=== PATIENT | male | born 1990 | race American Indian/Alaskan Native ===

== ENCOUNTER 2021-11-24 16:18 | Emergency (ER) | payer MEDICAID, SELFPAY ==
--- NOTE | 2021-11-24 16:48 | ED.GENADULT ---
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 and the pharmacy is closed over the weekend, he denies any seizure activity and he has no acute complaints he simply wants to maintain appropriate dosing of his medication Related Data Previous Rx's Medication Instructions Recorded lamotrigine 200 mg tablet 200 mg PO BID #10 tab 11/24/21 Allergies Allergy/AdvReac Type Severity Reaction Status Date / Time No Known Allergies Allergy Verified 11/24/21 17:02 [No Known Allergies*] Review of Systems Review of Systems: Here for med refill Negatives are no headache no confusion no dizziness no fainting no feeling faint no seizure no cough no vomiting no numbness weakness or tingling Yes all other systems are reviewed and are negative [facility] Past Medical History [facility] Narrative: History of seizures Source: nursing notes reviewed Social History Social History Advance Directives: No Advance Directives Information Provided: No Physical Exam Vital Signs: Vital Signs: Last Vital Signs Temp 98.7 F 11/24/21 17:00 Pulse 95 11/24/21 17:00 Resp 16 11/24/21 17:00 BP 120/59 L 11/24/21 17:00 Pulse Ox 97 11/24/21 17:00 BMI result Body Mass Index 21.4 General appearance no distress comfortable relaxed cooperative Head is normocephalic atraumatic Pupils equal round reactive light Extraocular motions intact Neck is supple Respiratory no distress Extremities full range of motion x4 Neuro gait and balance are normal, interaction both expression and comprehension are normal, motor is 5/5 x4 Course Course Course Narrative: Well-appearing asymptomatic patient with no recent seizures with normal exam is given a refill and will follow with his primary doctor He is compliant with his medication and has not missed any doses Discharge Plan Discharge Clinical Impression: Medication refill Patient Disposition: Home, Self-Care Additional Instructions: Follow with your doctor for a regular refill I wrote for 5 days worth of medication Return any time any worse condition or any concerns Prescriptions: New lamotrigine 200 mg tablet 200 mg PO BID Qty: 10 0RF Interventions: ED Discharge Assessment Last Done: 11/24/21 17:58 Discharge Date/Time: 11/24/21 17:59
[2021-11-24 17:00] VITALS: BP 120/59; PULSE 95; RESP 16; TEMP 37.1; O2SAT 97; BMI 21.4
== END 2021-11-24 17:59 | disposition home or self-care (01) ==
PROVIDERS: Emergency Provider Emergency Medicine; PCP Internal Medicine Geriatric Medicine
DX: Z76.0 Encounter for issue of repeat prescription (principal); R56.9 Unspecified convulsions
CPT/HCPCS: 99283

== ENCOUNTER 2022-02-24 15:07 | Emergency (ER) | payer MEDICAID, SELFPAY ==
[2022-02-24 15:55] VITALS: BP 113/61; PULSE 84; RESP 18; TEMP 36.6; O2SAT 97; BMI 21.4
--- NOTE | 2022-02-24 18:07 | ED_ITS ---
HPI - General Adult General Chief complaint: General Medical Stated complaint: med refill Time Seen by Provider: 02/24/22 18:02 Source: patient Mode of arrival: ambulatory Limitations: no limitations History of Present Illness HPI narrative: Patient presents to the emergency department requesting a temporary refill of his lamotrigine. He reports that he forgot to roller picker his medication yesterday wall the pharmacy was open. He cannot roller picker the prescription until Saturday. He is requesting a refill to hold him over until he is able to roller picker the prescription. He denies any recent seizure activity. He otherwise has no complaints. Related Data Previous Rx's Medication Instructions Recorded lamotrigine 200 mg tablet 200 mg PO BID #10 tab 11/24/21 lamotrigine 200 mg tablet 200 mg PO BID 3 Days #6 tab 02/24/22 Allergies Allergy/AdvReac Type Severity Reaction Status Date / Time No Known Allergies Allergy Verified 02/24/22 15:55 [No Known Allergies*] Review of Systems Review of Systems: Yes all other systems are reviewed and are negative [facility] Past Medical History Attestation statement: The following information was validated with the patient. Source: old records reviewed Social History Social History Advance Directives: No Advance Directives Information Provided: No Physical Exam ED Vital Signs: Vital Signs - 24 hr 02/24/22 15:55 Temperature 98 F Pulse Rate 84 Respiratory Rate 18 Blood Pressure 113/61 Pulse Oximetry 97 BMI result Body Mass Index 21.4 Vital signs have been reviewed as normal and appeared to be correct. Blood pressure normal.? Heart rate normal.? Respiration rate normal. Temperature normal.? Oxygen saturation normal. Appearance: Alert.?Oriented to person, place and time. No acute distress.?Normal affect. Eyes: Pupils equal, round and reactive to light.? ENT: Pharynx normal.?? Neck: Normal inspection.? Neck supple.?? CVS: Heart sounds normal. Normal heart rate and rhythm.? Pulses normal.?? Respiratory: No respiratory distress.? Lung sounds clear to auscultation bilaterally?? Abdomen: Soft and non-tender. Skin: Skin warm and dry.? Normal skin color.? Extremities: No lower extremity edema.? Neuro: Moves all extremities spontaneously. Sensation intact bilaterally. No motor deficits. Ambulates with normal steady gait. Course Course Course Narrative: Patient is a 31-year-old male with a past medical history of seizures. Presenting to emergency department for a refill on his lamotrigine as the pharmacy it was sent to is currently closed and he will not be able to roller picker the medication for another 2 days. Advised patient that I will provide a prescription for his lamotrigine, 3 day supply. Advised to follow-up with his primary care provider as needed, and may return to the emergency department with any new symptoms or concerns. He is well-appearing, without any medical complaints/concerns. Discharge Plan Discharge Clinical Impression: Medication refill Patient Disposition: Home, Self-Care Additional Instructions: A new prescription for your lamotrigine was sent to [facility] on [facility] in [place] for a 3 day supply of your medication. Please follow-up with your primary care provider for refill of your medication. You may return to the emergency department any new symptoms or concerns. Prescriptions: New lamotrigine 200 mg tablet 200 mg PO BID 3 Days Qty: 6 0RF No Action lamotrigine 200 mg tablet 200 mg PO BID Qty: 10 0RF Interventions: ED Discharge Assessment Last Done: 02/24/22 18:15 Discharge Date/Time: 02/24/22 18:16
== END 2022-02-24 18:16 | disposition home or self-care (01) ==
PROVIDERS: Emergency Provider Internal Medicine; PCP Internal Medicine Geriatric Medicine
DX: Z76.0 Encounter for issue of repeat prescription (principal); R56.9 Unspecified convulsions
CPT/HCPCS: 99282; 99283

== ENCOUNTER 2023-03-18 13:44 | Emergency (ER) | payer MEDICAID, SELFPAY ==
[2023-03-18 13:57] VITALS: BP 148/74; PULSE 101; RESP 16; TEMP 36.6; O2SAT 98; BMI 21.5
--- NOTE | 2023-03-18 13:59 | ED_ITS ---
HPI - General Adult General Chief complaint: General Medical Stated complaint: Looking for seizure meds Time Seen by Provider: 03/18/23 14:06 Source: patient Mode of arrival: ambulatory Limitations: no limitations History of Present Illness HPI narrative: 32 yold male presents to the ED for medication refill of lamictical. patient states he ran out of lamictal and has refill, but pharmacy was closed today. patient needs two 200mg doses today. Patient states no physical complaints. Related Data Previous Rx's Medication Instructions Recorded lamotrigine 200 mg tablet 200 mg PO BID #10 tabs 11/24/21 lamotrigine 200 mg tablet 200 mg PO BID 3 days #6 tabs 02/24/22 lamotrigine 200 mg tablet 200 mg PO BID #2 tabs 03/18/23 (Lamictal) Allergies Allergy/AdvReac Type Severity Reaction Status Date / Time No Known Allergies Allergy Verified 03/18/23 13:57 [No Known Allergies*] Review of Systems Review of Systems: medication refill Yes all other systems are reviewed and are negative REPLACED BY [facility] Social History Social History Advance Directives: No Advance Directives Information Provided: Yes Physical Exam ED Vital Signs: Vital Signs - 24 hr 03/18/23 13:57 Temperature 98 F Pulse Rate 101 H Respiratory Rate 16 Blood Pressure 148/74 H Pulse Oximetry 98 Oxygen Delivery Method Room Air BMI result Body Mass Index 21.5 Const General: cooperative, healthy appearing, comfortable, no acute distress, well developed, alert, awake and Physically active Orientation/consciousness: oriented to person, oriented to place, oriented to time and patient oriented x3 HENMT Head: Yes normal to inspection, Yes No palpable skull fracture present, Yes normocephalic, Yes atraumatic and No abrasion Eyes General: appearance normal, both eyes and all related structures Neck Neck: Yes normal visual inspection, Yes full ROM, Yes no lymphadenopathy, Yes no meningeal signs, Yes trachea midline, Yes supple, No anterior neck swelling and No tender Chest Chest palpation & inspection: normal inspection of the chest and normal palpation of entire chest wall Resp Effort & Inspection: normal respiratory effort and able to speak in complete sentences Auscultation: clear to auscultation bilaterally Cardio Jugular venous distension: no JVD Heart sounds: S1 normal heart sound present and S2 normal heart sound present GI Inspection: Yes normal to inspection and No abdominal wall ecchymosis Palpation (GI): Soft to palpation, not firm, nontender, no guarding and not rigid General: No CVA tenderness and Yes no CVA tenderness Back/Spine/Pelvis Back: no CVA tenderness, No CVA tenderness and No back tenderness Skin General skin exam: no rashes or lesions noted and elasticity normal Neuro General: oriented to person, oriented to place, oriented to time, patient oriented x3, gait normal, tone normal, moves all extremities, Normal light touch and pain sensation, no meningeal signs, no focal motor deficits, CN's II-XI intact bilaterally and normal sensation to monofilament Extrem General: Yes normal to inspection and Yes full ROM Psych Appearance: grossly normal, well kempt and not disheveled Course Course Course Narrative: RME: patient presents to the ED requesting lamictal 200mg BiD. patient states his pharmacy closed so he is without meds for tonight and tomorrow morning. Medical Decision Making Medical Decision Making [facility] Narrative: 32 yold male presents to the ED for medication refill of lamictal. Patient states no physical complaints. Physical exam is normal. Discharge with lamictal two doses Differential Diagnosis Differential Diagnoses: The differential diagnosis associated with the presentation includes (mediation refill) Prescription Management I considered prescription management with: Other (seizure meds) Discharge Plan Discharge Clinical Impression: Medication refill Patient Disposition: Home, Self-Care Instructions: Medicine Refill (ED) Additional Instructions: You will be discharged with two doses of lamictal. Return to the ED for any seizure, headache, nausea, vomitting, tingling, numbness, chest pain, shortness of breath, or any other concerning symptoms. Please follow up with PCP. Prescriptions: New lamotrigine [Lamictal] 200 mg tablet 200 mg PO BID Qty: 2 0RF No Action lamotrigine 200 mg tablet 200 mg PO BID Qty: 10 0RF lamotrigine 200 mg tablet 200 mg PO BID 3 Days Qty: 6 0RF Interventions: ED Discharge Assessment Last Done: 03/18/23 14:08 Discharge Date/Time: 03/18/23 15:21 Print Language: Uzbek
== END 2023-03-18 15:21 | disposition home or self-care (01) ==
PROVIDERS: Emergency Provider Emergency Medicine
DX: Z76.0 Encounter for issue of repeat prescription (principal)
CPT/HCPCS: 99282; 99283

== ENCOUNTER 2024-06-04 16:48 | Emergency (ER) | payer MEDICAID, SELFPAY ==
[2024-06-04 16:57] VITALS: BP 135/76; PULSE 92; RESP 16; TEMP 37; O2SAT 97; BMI 22.3
--- NOTE | 2024-06-04 16:57 | ED.UPPEXIN ---
HPI - Extremity Injury (Upper) General Chief Complaint: Neck Pain/Injury Stated Complaint: left side pain from neck down/WC Time Seen by Provider: 06/04/24 17:05 Source: patient Mode of arrival: ambulatory Limitations: no limitations History of Present Illness ED Provider: Nadya Morales PA-C HPI narrative: 33 yo male presents to the ER for evaluation of left sided neck pain and left shoulder pain for the last few hours when he went to work today. He reports the last several months he has been lifting heavy wood repetitively using his left arm. Pain is located on the left side of his neck and radiates to his left shoulder. It is worse with movement of his head to the right. Pain is currently 7/10. No weakness, numbness or tingling. No headaches. He is able to fully range the LUE. MD complaint: injury to: left and shoulder (& neck) Onset (ago): hour(s) Other injuries: none Handedness: right Place: work Severity: moderate Severity scale (1-10): 7 Relieving factors: immobilization and rest Exacerbating factors: movement of extremity Associated symptoms: denies other symptoms Related Data Previous Rx's ?Medication ?Instructions ?Recorded lamotrigine 200 mg tablet 200 mg PO BID #10 tabs 11/24/21 lamotrigine 200 mg tablet 200 mg PO BID 3 days #6 tabs 02/24/22 lamotrigine 200 mg tablet 200 mg PO BID #2 tabs 03/18/23 (Lamictal) cyclobenzaprine 10 mg tablet 10 mg PO TID PRN muscle spasm #14 06/04/24 tabs ibuprofen 600 mg tablet 600 mg PO Q8H PRN pain #14 tabs 06/04/24 lidocaine 5 % topical patch 1 patch topical DAILY #15 ea 06/04/24 Allergies Allergy/AdvReac Type Severity Reaction Status Date / Time No Known Allergies Allergy Verified 06/04/24 16:59 [No Known Allergies*] Review of Systems Review of Systems: Yes all other systems are reviewed and are negative [facility] Social History Social History Advance Directives: No Advance Directives Information Provided: No Physical Exam Vital Signs: Vital Signs: Last Vital Signs Temp 98.6 F 06/04/24 17:13 Pulse 92 06/04/24 17:13 Resp 16 06/04/24 17:13 BP 135/76 06/04/24 17:13 Pulse Ox 97 06/04/24 17:13 O2 Del Method Room Air 06/04/24 17:13 BMI result Body Mass Index 22.3 Appearance: Alert. Oriented X3. No acute distress. HEENT: normal inspection Neck: normal inspection, no midline tenderness of the cervical spine. soft tissue tenderness and spasm of the left side of the neck w/ spasm of the trapezius CVS: Normal heart rate and rhythm. Pulses normal. Respiratory: No respiratory distress. Skin: Skin warm and dry. Normal skin color. Normal skin turgor. No rashes. Extremities: normal inspection of the bilateral UE. FROM of the left shoulder, nontender joint without swelling. NV intact distally. Neuro: Oriented X 3. No motor deficit. No sensory deficit. Medications Administered Discontinued Medications Generic Name Dose Route Start Last Admin Trade Name Freq PRN Reason Stop Dose Admin Ketorolac Tromethamine 30 mg 06/04/24 17:01 06/04/24 17:05 Ketorolac Tromethamine 30 Mg/Ml Vial IM 06/04/24 17:02 30 mg ONCE ONE Administration Lidocaine 1 patch 06/04/24 17:01 06/04/24 17:06 Lidocaine 4 % Patch Adh..Patch TRANSDERMA 06/04/24 17:02 1 patch ONCE ONE Administration Protocol Medical Decision Making Medical Decision Making MDM Narrative: 33 yo male presenting to the ER for evaluation of left sided neck pain and spasm that radiates to the left shoulder. worse with movement of the head. FROM of the left shoulder without associated tenderness. he has muscle tenderness and spasm on exam. will treat accordingly. stable for d/c home with muscle relaxer, nsaid, lidoderm and activity modification at work Differential Diagnosis Differential Diagnoses: The differential diagnosis associated with the presentation includes cervical strain/spasm, AC joint separation, shoulder sprain, bursitis, cervical radiculopathy, rotator cuff injury, doubt dissection External Record Review External record reviewed: Outpatient record and Prior outpatient labs Tests considered The following testing was considered but not selected: considered imaging of the neck however no trauma and low suspicion for vascular injury/dissection Prescription Management I considered prescription management with: Pain Medication Critical Care Time Critical Care Time Critical Care Time: No Discharge Plan Discharge Clinical Impression: Cervical muscle strain Patient Disposition: Home, Self-Care Instructions: Cervical Sprain (ED) Additional Instructions: Your pain is most likely due to muscle strain and spasm. Limit heavy lifting Use ice several times per day for 20 minutes at a time for the next 48 hours and then change to heat. Take medications as prescribed to help with pain and discomfort. Do not drive after taking the cyclobenzaprine, it can make you tired. Follow up with your Primary Care Doctor. If you develop new or worsening symptoms call 911 or come back to the ER for further evaluation. Prescriptions: New cyclobenzaprine 10 mg tablet 10 mg PO TID PRN (Reason: muscle spasm) Qty: 14 0RF ibuprofen 600 mg tablet 600 mg PO Q8H PRN (Reason: pain) Qty: 14 0RF lidocaine 5 % adhesive patch,medicated 1 patch topical DAILY Qty: 15 0RF Rx Instructions: leave on most painful area for up to 12 hrs No Action lamotrigine 200 mg tablet 200 mg PO BID Qty: 10 0RF lamotrigine 200 mg tablet 200 mg PO BID 3 Days Qty: 6 0RF lamotrigine [Lamictal] 200 mg tablet 200 mg PO BID Qty: 2 0RF Referrals: [facility] [Physician] - Stand Alone Forms: Work/School Release Interventions: ED Discharge Assessment Last Done: 06/04/24 17:13 Discharge Date/Time: 06/04/24 17:14 Print Language: Arabic
[2024-06-04] MEDS: Ketorolac Tromethamine 30 MG/ML VIAL IM (17:05)
[2024-06-04] MEDS: Lidocaine 4 % Patch ADH..PATCH 1 PATCH TRANSDERMA (17:06)
[2024-06-04 17:13] VITALS: BP 135/76; PULSE 92; RESP 16; TEMP 37; O2SAT 97
--- OUTSIDE RECORDS SUMMARY | 2024-06-10 06:19 | XMS_ITS | Continuity of Care Document ---
Author Organization [facility] ter Address [address] [place] [id number]- Care Team Providers Care Community Outreach Manager Name Role Phone Not on Staff, PCP Primary Care Physician Unavail able Encounter [facility] Date(s): 05/22/22 - 05/22/[address] [address]- Encounter Diagnosis Back pain(Final) - 05/22/22 Discharge Disposition: A-D/C Home Attending Physician: Guzman Mcclure MD Admitting Physician: Guzman Mcclure MD Referring Physician: Not on Staff, Referring MD Allergies, Adverse Reactions, Alerts No Known Allergies Immunizations Given and Recorded Vaccine Date Status Refusal Reason tetanus/diphtheria/pertussis, acel(Tdap) 03/12/15 Given pneumococcal 23-valent vaccine 05/19/14 Given Medications acetaminophen 500 mg oral tablet 2 tablet = 1,000 mg, By Mouth, Every 8 hours, PRN for pain, # 100 tablet, 0 Refills, Acute 06/23/2213:58:00 EDT, 05/22/22 13:58:00 EDT, Tablet, [facility], Partial fill upon patient request if the prescription is for a schedule II opioi... Start Date: 05/22/22 Stop Date: 06/23/22 Status: Ordered carBAMazepine 100 mg oral tablet, extended release 400 mg, By Mouth, Every 12 hours, # 6 tablet, Refills 0, Tot. Refills 0, Maintenance, 09/28/17 15:20:40, Print Requisition Start Date: 09/28/17 Stop Date: 10/01/17 Status: Ordered carBAMazepine 400 mg oral tablet, extended release 400 mg, 1, tablet, By Mouth, 2 times a day, # 28 tablet, Refills 0, Tot. Refills 0, Maintenance, 05/14/17 15:20:44, Print Requisition Start Date: 05/14/17 Stop Date: 05/28/17 Status: Ordered carBAMazepine 400 mg oral tablet, extended release 400 mg, 1, tablet, By Mouth, 2 times a day, # 30 tablet, Refills 0, Tot. Refills 0, Maintenance, 08/29/17 16:47:54, Print Requisition Start Date: 08/29/17 Status: Ordered carBAMazepine 400 mg oral tablet, extended release 400 mg, 1, tablet, By Mouth, 2 times a day, # 10 tablet, Refills 0, Tot. Refills 0, Maintenance, 06/25/17 17:58:23, Print Requisition Start Date: 06/25/17 Stop Date: 06/30/17 Status: Ordered carbamazepine 400 mg oral tablet, extended release 1 tablet = 400 mg, By Mouth, Every 12 hours, # 60 tablet, 0 Refills, Maintenance, 05/22/14 11:54:31, XR Tablet Start Date: 05/22/14 Stop Date: 06/21/14 Status: Ordered Ibuprofen Tablet 400 mg, By Mouth, 3 times a day, PRN, Maintenance, Pain , Mild, 05/18/14 0:59:25 Start Date: 05/18/14 Status: Ordered LaMICtal ODT 200 mg oral tablet, disintegrating 1 tablet = 200 mg, By Mouth, 2 times a day, # 2 tablet, 0 Refills, Maintenance, 08/01/20 16:55:00 EDT, DIS Tablet, [facility], 164, cm, 08/01/20 16:15:00 EDT, Height, 54.2, kg, 08/01/2016:15:00 EDT, Dry Weight Start Date: 08/01/20 Stop Date: 08/02/20 Status: Ordered lamotrigine 200 mg oral tablet 1 tablet = 200 mg, By Mouth, 2 times a day, # 60 tablet, 0 Refills, Maintenance, 08/21/18 18:28:37 EDT, Tablet Start Date: 08/21/18 Stop Date: 09/20/18 Status: Ordered lamotrigine 200 mg oral tablet 1 tablet = 200 mg, By Mouth, 2 times a day, # 28 tablet, 0 Refills, Maintenance, 07/20/18 13:50:11 EDT, Tablet Start Date: 07/20/18 Stop Date: 08/03/18 Status: Ordered lamotrigine 25 mg oral tablet 25 mg, 1, tablet, By Mouth, 2 times a day, # 28 tablet, Refills 0, Tot. Refills 0, Maintenance, 05/14/17 15:21:04, Print Requisition Start Date: 05/14/17 Stop Date: 05/28/17 Status: Ordered Oncovite Multiple Vitamins oral tablet 1 tablet, By Mouth, Daily, # 30 tablet, 0 Refills, Maintenance, 05/18/14 1:00:39, Tablet Start Date: 05/18/14 Status: Ordered Vital Signs Most recent to oldest [Reference Range]: 1 2 Oxygen Saturation [94-100 %] 96 % (05/22/22 12:03 PM) 98 % (05/22/22 10:37 AM) Pulse Rate [55-90 bpm] 69 bpm (05/22/22 12:03 PM) 84 bpm (05/22/22 10:37 AM) Blood Pressure [90-138/55-84 mm Hg] 119/ 55mm Hg (05/22/22 12:03 PM) 136/64mm Hg (05/22/22 10:37 AM) Respiratory Rate [16-30 br/min] 15 br/mi n *L* (05/22/22 12:03 PM) 16 br/min (05/22/22 10:37 AM) Temperature [96.8-100.4 DegF] 98.3 DegF (05/22/22 10:37 AM) Mode of Delivery (Oxygen) Room air (05/22/22 12:03 PM) Blood pressure sites Arm, left (05/22/22 12:03 PM) Arm, left (05/22/22 10:37 AM) Social History Social History Type Response Smoking Status Current every day lenard dial entered on: 07/20/18 Sex
--- OUTSIDE RECORDS SUMMARY | 2024-06-10 06:19 | XMS_ITS | Continuity of Care Document ---
Author Organization [facility] ter Address [address] [place] [address]- Care Team Providers Care Skiver Box Toe Name Role Phone Not on Staff, PCP Primary Care Physician Unavail able Encounter [facility] Date(s): 08/01/20 - 08/01/[address] [address]- [facility] Discharge Disposition: A-D/C Home Attending Physician: Felipa Kaur MD Admitting Physician: Felipa Kaur MD Referring Physician: Not on Staff, Referring MD Allergies, Adverse Reactions, Alerts Substance Reaction Severity Status NKA Active Immunizations Given and Recorded Vaccine Date Status Refusal Reason tetanus/diphtheria/pertussis, acel(Tdap) 03/12/15 Given pneumococcal 23-valent vaccine 05/19/14 Given Medications carBAMazepine 100 mg oral tablet, extended release 400 mg, By Mouth, Every 12 hours, # 6 tablet, Refills 0, Tot. Refills 0, Maintenance, 09/28/17 15:20:40, Print Requisition Start Date: 09/28/17 Stop Date: 10/01/17 Status: Ordered carbamazepine 400 mg oral tablet, extended release 1 tablet = 400 mg, By Mouth, Every 12 hours, # 60 tablet, 0 Refills, Maintenance, 05/22/14 11:54:31, XR Tablet Start Date: 05/22/14 Stop Date: 06/21/14 Status: Ordered carBAMazepine 400 mg oral tablet, [...] Date: 06/25/17 Stop Date: 06/30/17 Status: Ordered Ibuprofen Tablet 400 mg, By Mouth, 3 times a day, PRN, Maintenance, Pain , Mild, 05/18/14 0:59:25 Start Date: 05/18/14 Status: Ordered LaMICtal ODT 200 mg oral tablet, disintegrating 1 tablet = 200 mg, By Mouth, 2 times a day, # 2 tablet, 0 Refills, Maintenance, 08/01/20 16:55:00 EDT, DIS Tablet, [facility], 164, cm, 08/01/20 16:15:00 EDT, Height, [...] recent to oldest [Reference Range]: 1 2 3 Height 164 cm (08/01/20 4:15 PM) 164 cm (08/01/20 2:16 PM) Weight 54.2 kg (08/01/20 4:15 PM) 54.2 kg (08/01/20 2:16 PM) Oxygen Saturation [94-100 %] 99 % (08/01/20 4:15 PM) 100 % (08/01/20 2:16 PM) 97 % (08/01/20 2:10 PM) Pulse Rate [55-90 bpm] 76 bpm (08/01/20 4:15 PM) 78 bpm (08/01/20 2:16 PM) 95 bpm *H* (08/01/20 2:10 PM) Body Mass Index [18.5-24.99] 20.15 (08/01/20 4:15 PM) 20.15 (08/01/20 2:16 PM) Blood Pressure [90-138/55-84 mm Hg] 127/69mm Hg (08/01/20 4:15 PM) 133/53mm Hg (08/01/20 2:16 PM) Respiratory Rate [16-30 br/min] 16 br/min (08/01/20 4:15 PM) 16 br/min (08/01/20 2:16 PM) 18 br/min (08/01/20 2:10 PM) Temperature [96.8-100.4 DegF] 98.0 DegF (08/01/20 4:15 PM) 98.2 DegF (08/01/20 2:16 PM) Mode of Delivery (Oxygen) Room air (08/01/20 4:15 PM) Room air (08/01/20 2:16 PM) Room air (08/01/20 2:10 PM) Blood pressure sites Arm, left (08/01/20 4:15 PM) Arm, right (08/01/20 2:16 PM) Temperature Route Oral (08/01/20 4:15 PM) Oral (08/01/20 2:16 PM) Dry Weight 54.2 kg (08/01/20 4:15 PM) 54.2 kg (08/01/20 2:16 PM) Weight Obtained Via Standing scale (08/01/20 2:16 PM) Dry Weight Obtained Via Standing scale (08/01/20 2:16 PM) Social History Social History Type Response Smoking Status Current every day lenard dial entered on: 07/20/18 Sex
== END 2024-06-04 17:14 | disposition home or self-care (01) ==
LOC: HO.ED 17:10
PROVIDERS: Emergency Provider Internal Medicine; PCP Internal Medicine Geriatric Medicine
DX: M54.2 Cervicalgia (principal); R51.9 Headache, unspecified
CPT/HCPCS: 96372; 99283; 99284; J1885

== ENCOUNTER 2024-07-16 14:19 | Emergency (ER) | payer MEDICAID, SELFPAY ==
--- NOTE | ~2024-07-16 | XR_ITS ---
EXAMINATION: XR HAND/WRIST, LEFT CLINICAL INFORMATION: Left wrist pain COMPARISON: None available. TECHNIQUE: PA, lateral, and oblique views of the left hand and wrist. FINDINGS: The bones and soft tissues are normal. No fracture. Alignment is anatomic. Joint spaces are maintained. No erosions or soft tissue calcifications. XR/XR hand wrist LT IMPRESSION: Normal radiographs of the hand and wrist. Electronically signed by: Tona Thayer MD 07/16/2024 04:24 PM EDT
[2024-07-16 15:19] VITALS: BP 141/65; PULSE 90; RESP 16; TEMP 36.9; O2SAT 100; BMI 22.3
--- NOTE | 2024-07-16 15:30 | ED.EXTPRO ---
HPI - Extremity Problem General Chief complaint: Extremity Injury, Upper Stated complaint: L wrist pain no injury Time Seen by Provider: 07/16/24 17:27 Source: patient and RN notes reviewed Mode of arrival: ambulatory Limitations: no limitations History of Present Illness ED Provider: Rachel Christine PA-C HPI Narrative: This is a 33-year-old male, with a history of a seizure disorder on Lamictal, who presents emergency department with complaints of left wrist pain x2 days. Patient states that 2 days ago he was pulling and object forcefully, later on that day he felt pain in his left wrist. He took ibuprofen 2 days ago which provided him with some relief. He states that he has had increased pain and feels as though something is broken in his wrist as he has pain with movement. Denies any numbness or tingling. Denies history of previous injury or trauma to his left wrist. Denies taking any medications prior to his arrival today. No fevers, chills. No other complaints or concerns at this time. MD Complaint: extremity pain and extremity swelling Location: left Quality: aching Radiation: none Relieving factors: rest Exacerbating factors: range of motion Associated symptoms: denies other symptoms Related Data Previous Rx's ?Medication ?Instructions ?Recorded lamotrigine 200 mg tablet 200 mg PO BID #10 tabs 11/24/21 lamotrigine 200 mg tablet 200 mg PO BID 3 days #6 tabs 02/24/22 lamotrigine 200 mg tablet 200 mg PO BID #2 tabs 03/18/23 (Lamictal) cyclobenzaprine 10 mg tablet 10 mg PO TID PRN muscle spasm #14 06/04/24 tabs ibuprofen 600 mg tablet 600 mg PO Q8H PRN pain #14 tabs 06/04/24 lidocaine 5 % topical patch 1 patch topical DAILY #15 ea 06/04/24 ibuprofen 600 mg tablet 600 mg PO Q6H PRN pain #30 tabs 07/16/24 Allergies Allergy/AdvReac Type Severity Reaction Status Date / Time No Known Allergies Allergy Verified 07/16/24 15:23 [No Known Allergies*] Review of Systems Review of Systems: Yes all other systems are reviewed and are negative Constitutional: Constitutional: Reports as per [facility] Past Medical History Attestation statement: The following information was validated with the patient. Social History Social History Advance Directives: No Advance Directives Information Provided: No Do you have a plan to hurt others: No Plan Physical Exam Vital Signs: Vital Signs: Last Vital Signs Temp 98.5 F 07/16/24 15:19 Pulse 90 07/16/24 15:19 Resp 16 07/16/24 15:19 BP 141/65 H 07/16/24 15:19 Pulse Ox 100 07/16/24 15:19 O2 Del Method Room Air 07/16/24 15:19 BMI result Body Mass Index 22.3 Const: General: cooperative, comfortable and no acute distress Orientation/consciousness: patient oriented x3 Limitations: no limitations HEENT: Head: Yes normal to inspection, Yes normocephalic and Yes atraumatic Ears: hearing grossly normal bilaterally General nose exam: Normal external nose present Face and sinus: Yes normal facial exam Mouth: Normal oral and palatal mucosa present, oropharynx normal and moist mucous membranes Throat: Yes posterior oropharynx normal Eyes: General: appearance normal, both eyes and all related structures Eyelids: Yes eyelids normal Conjunctivae: conjunctivae normal Sclerae: sclerae normal Pupils: Equal, round and reactive pupils present EOM: EOMs intact bilaterally Neck: Neck: Yes normal visual inspection, Yes full ROM and Yes no lymphadenopathy Lymphatic: no lymphadenopathy noted Chest: Chest palpation & inspection: normal inspection of the chest Resp: Effort & Inspection: normal respiratory effort and able to speak in complete sentences Cardio: Rate: regular rate Rhythm: regular rhythm GI: Inspection: Yes normal to inspection Skin: General skin exam: no rashes or lesions noted Trauma: no lacerations or abrasions Wounds: no wounds Neuro: General: patient oriented x3 and moves all extremities Cranial nerves: Yes Equal, round and reactive pupils present Extrem: Other: Left wrist volar aspect, overlying the distal ulna, there is faint erythema and edema, with mild tenderness palpation, no fluctuance, no warmth. Pain with flexion and extension and ulnar and radial deviation. Strong radial pulse. General: Yes normal to inspection Right upper extremity: normal to inspection Left upper extremity: normal to inspection Right lower extremity: normal to inspection Left lower extremity: normal to inspection Course Course Course Narrative: RME: Done by CAMILA Roberts. 33-year-old male presents to ED for left wrist pain for 2 days without any trauma. Pain on range of motion of left wrist. On exam negative for any swelling, bluish black discoloration, crepitus, obvious deformity of wrist or right upper extremities. Vascular neuro motor exam intact. Motor exam intact wrist but with pain. xray [email or web address] Medical Decision Making Medical Decision Making [facility] Narrative: This is a 33-year-old male who presents emergency department with complaints of left wrist pain for the last 2 days. On arrival, vital signs within normal limits. He is speaking full sentences under no acute distress. He reports a remote history of pulling and object however did not have pain initially at that time. He states that later on that day he developed pain in his left wrist. He has faint erythema and edema noted to the ulnar, volar aspect. Symptoms likely contributed to a wrist sprain. Does not appear to be cellulitic in nature. He is not diabetic. Will treat with splint, given orthopedic follow-up, given strict return precautions. He understands and agrees with plan. Patient stable for discharge Differential Diagnosis Differential Diagnoses: The differential diagnosis associated with the presentation includes Sprain, strain, contusion, fracture, dislocation Admission/Observation Consideration of admission/observation: Escalation of care including admission/observation considered Radiology Impression Discussion of test interpretation with radiology: I have reviewed the radiologist's reading. Radiologist Impression: EXAMINATION: XR HAND/WRIST, LEFT CLINICAL INFORMATION: Left wrist pain COMPARISON: None available. TECHNIQUE: PA, lateral, and oblique views of the left hand and wrist. FINDINGS: The bones and soft tissues are normal. No fracture. Alignment is anatomic. Joint spaces are maintained. No erosions or soft tissue calcifications. XR/XR hand wrist LT IMPRESSION: Normal radiographs of the hand and wrist. Electronically signed by: Tona Thayer MD 07/16/2024 04:24 PM EDT Dictated By: Tona Thayer MD Discharge Plan Discharge Clinical Impression: Left wrist sprain Patient Disposition: Home, Self-Care Instructions: Wrist Sprain (ED) Additional Instructions: You were seen in the emergency department due to left wrist pain. Your x-rays do not show any broken bones. Please rest, ice, and use splint as needed for support. Take ibuprofen every 6 hours for the next 2-3 days. Take with food as this can cause an upset stomach. Please follow-up with the orthopedic team if your symptoms persist after 1 week. If any new or worsening symptoms occur including but not limited to worsening pain, worsening redness, swelling, inability to move your wrist, please return for re-evaluation. Prescriptions: New ibuprofen 600 mg tablet 600 mg PO Q6H PRN (Reason: pain) Qty: 30 0RF No Action lamotrigine 200 mg tablet 200 mg PO BID Qty: 10 0RF lamotrigine 200 mg tablet 200 mg PO BID 3 Days Qty: 6 0RF cyclobenzaprine 10 mg tablet 10 mg PO TID PRN (Reason: muscle spasm) Qty: 14 0RF ibuprofen 600 mg tablet 600 mg PO Q8H PRN (Reason: pain) Qty: 14 0RF lidocaine 5 % adhesive patch,medicated 1 patch topical DAILY Qty: 15 0RF Rx Instructions: leave on most painful area for up to 12 hrs lamotrigine [Lamictal] 200 mg tablet 200 mg PO BID Qty: 2 0RF Referrals: [facility] [Provider Group] Discharge Date/Time: 07/16/24 18:30 Print Language: Maltese
== END 2024-07-16 18:30 | disposition home or self-care (01) ==
PROVIDERS: Emergency Provider Internal Medicine; PCP Internal Medicine Geriatric Medicine
DX: S63.502A Unspecified sprain of left wrist, initial encounter (principal); M25.532 Pain in left wrist; M79.642 Pain in left hand; X50.9XXA Other and unspecified overexertion or strenuous movements or postures, initial encounter; Y93.89 Activity, other specified; Y92.89 Other specified places as the place of occurrence of the external cause; Y99.8 Other external cause status
CPT/HCPCS: 73110; 73130; 99283

== ENCOUNTER 2024-08-04 11:52 | Outpatient (AMB) | payer MEDICAID, SELFPAY ==
--- NOTE | 2024-08-04 11:53 | MHC.OFFVIS ---
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 Patient was seen at [facility] ED on 07/16/24 with complaints of left wrist pain. Today he states that he does not recall an injury, his pain presented with ROM a couple of days prior to his ER visit. He presented to [facility] ER where x-rays were taken and placed in a velcro wrist brace. Currently his pain has improved, stating no pain or discomfort. He has numbness in his hand when sleeping. 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 The patient reports that at that time, he fell onto his left hand and wrist, and began to experience significant discomfort in the volar and ulnar aspect of the left wrist. Today, the patient reports that his symptoms have completely resolved, and that he is experiencing no pain or discomfort at this time.. Patient reports that his only complaint is that he experiences very occasional numbness and tingling in his hand when he sleeps wrong on it, that quickly resolves when he wakes up. Patient reports that he has no daytime numbness or tingling, or numbness and tingling when he sleeps in a normal position. No other acute complaints or concerns at this time. [facility] Social History (Updated 08/04/24 @ 11:56 by LAWRENCE Dooley) Patient Tobacco Use Status: Current everyday Tobacco user Current occupational status: unemployed Current occupation: right hand dominant Physical Exam Vital Signs: BMI result Body Mass Index 22.3 Extrem Other: Patient is alert, oriented, and in no acute distress. Neuro: Normal sensation of the tips of all digits of the left hand at this time Vascular: Cap refill brisk Pain: No tenderness to palpation of the left radial styloid, ulnar styloid, anatomical snuffbox, DRUJ, or elsewhere in the left hand and wrist Range of motion painless ROM: Patient is able to make a closed fist and extend all digits of the left hand fully and without difficulty Skin: No lacerations or abrasions. General: No ecchymosis, erythema, or evidence of infection. Psych: Appears grossly normal Affect normal Attitude cooperative Results Reviewed Results Reviewed: X-rays obtained in the ED on date of injury and independently reviewed by me, Abdifatah Calderón PA-C, demonstrate no fracture or acute bony abnormality. Assessment & Plan Assessment & Plan (1) Left wrist sprain: Code(s): S63.502A - Unspecified sprain of left wrist, initial encounter Category: Medical Qualifiers: Encounter type: initial encounter Qualified Code(s): S63.502A - Unspecified sprain of left wrist, initial encounter Plan 1. Left wrist sprain Symptoms resolved since evaluation in the ED At this time, patient requires no acute orthopedic intervention, as his symptoms have completely resolved Patient is advised that if he notices his numbness and tingling increasing in frequency or occurring in situations other than sleeping in an odd position, he should call for re-evaluation and potential EMG and nerve conduction study Patient was amenable to this plan Patient will follow-up as needed with any acute concerns Coding Level of Care Code New Pt Level 3 (04426) Diagnoses Left wrist sprain S63.502A Encounter type: initial encounter
[2024-08-04 11:58] VITALS: BMI 22.3
== END 2024-08-04 12:08 | disposition home or self-care (01) ==
PROVIDERS: PCP Internal Medicine Geriatric Medicine
DX: S63.502A Unspecified sprain of left wrist, initial encounter (principal)
CPT/HCPCS: 99202

== ENCOUNTER → 2024-08-04 11:52 | Outpatient (BNVA) | payer MEDICAID, SELFPAY | PROVIDERS: PCP Internal Medicine Geriatric Medicine | DX: S63.502A Unspecified sprain of left wrist, initial encounter (principal); W19.XXXA Unspecified fall, initial encounter; Y93.9 Activity, unspecified; Y92.9 Unspecified place or not applicable; Y99.9 Unspecified external cause status | CPT/HCPCS: 99212 ==

== ENCOUNTER 2024-10-25 16:55 | Emergency (ER) | payer MEDICAID, SELFPAY ==
--- NOTE | ~2024-10-25 | XR_ITS ---
CLINICAL HISTORY: chest pain 1 view chest x-ray Comparison: None Findings: Lungs are well inflated. Cardiac silhouette is within normal limits. Small left pleural effusion. Bilateral perihilar bronchial wall thickening. No dense area of consolidation. Impression: Small left pleural effusion with perihilar edema and/or bronchitis. This document has been electronically signed by: Ryan Álvarez MD on 10/25/2024 18:53:44
[2024-10-25 17:07] VITALS: BP 153/85; PULSE 96; O2SAT 98
--- NOTE | 2024-10-25 17:07 | ECG_ITS ---
Test Reason : CHEST PAIN Blood Pressure : / mmHG Vent. Rate : 092 BPM Atrial Rate : 092 BPM P-R Int : 138 ms QRS Dur : 086 ms QT Int : 320 ms P-R-T Axes : 069 036 044 degrees QTc Int : 395 ms Normal sinus rhythm Early repolarization Normal ECG When compared with ECG of 05-JAN-2015 15:15, No significant change was found Referred By: Generic ED Physician Electronically Signed By:MISTY BROWN
[2024-10-25 17:18] VITALS: BP 131/69; PULSE 92; RESP 18; TEMP 37.4; O2SAT 99
--- NOTE | 2024-10-25 17:30 | ED.CHESTPAIN ---
HPI - Chest Pain General Chief Complaint: Chest Pain Stated Complaint: chest pain since yesterday after heavy lifting Time Seen by Provider: 10/25/24 21:25 Source: patient Mode of arrival: ambulatory Limitations: no limitations History of Present Illness ED Provider: HPI narrative: Patient with no significant past medical history started noticing pain in the left side of the chest after lifting grocery yesterday reproducible pain sharp in a breath cocaine use Related Data Previous Rx's ?Medication ?Instructions ?Recorded lamotrigine 200 mg tablet 200 mg PO BID #10 tabs 11/24/21 lamotrigine 200 mg tablet 200 mg PO BID 3 days #6 tabs 02/24/22 lamotrigine 200 mg tablet 200 mg PO BID #2 tabs 03/18/23 (Lamictal) cyclobenzaprine 10 mg tablet 10 mg PO TID PRN muscle spasm #14 06/04/24 tabs ibuprofen 600 mg tablet 600 mg PO Q8H PRN pain #14 tabs 06/04/24 lidocaine 5 % topical patch 1 patch topical DAILY #15 ea 06/04/24 ibuprofen 600 mg tablet 600 mg PO Q6H PRN pain #30 tabs 07/16/24 ibuprofen 600 mg tablet 600 mg PO Q6H PRN fever or pain 10/25/24 #30 tabs Allergies Allergy/AdvReac Type Severity Reaction Status Date / Time No Known Allergies Allergy Verified 10/25/24 17:20 [No Known Allergies*] Review of Systems Review of Systems: Yes all other systems are reviewed and are negative PMFSH Social History Social History Patient Tobacco Use Status: Current everyday Tobacco user Smoked in Last 30 Days: Yes Use of substances other than those prescribed or required for medical reasons: Yes Substance Use Type: Marijuana Substance Use Frequency: Daily Advance Directives: No Advance Directives Information Provided: No Current occupational status: unemployed Current occupation: right hand dominant Physical Exam Vital Signs: Vital Signs: Last Vital Signs Temp 98.3 F 10/25/24 21:37 Pulse 88 10/25/24 21:37 Resp 16 10/25/24 21:37 BP 119/68 10/25/24 21:37 Pulse Ox 96 10/25/24 21:37 O2 Del Method Room Air 10/25/24 21:37 BMI result Body Mass Index 20.0 Appearance: Alert. Oriented X3. No acute distress. ENT: Pharynx normal. Oral Mucosa moist Neck: Normal inspection. Neck supple. CVS: Normal heart rate and rhythm. Pulses normal. Left chest wall tenderness Respiratory: No respiratory distress. Equal air entry bilateral, no wheezing/rales/rhonchi Abdomen: Soft and nontender. Bowel sounds are present, no mass palpable, no CVA tenderness Skin: Skin warm and dry. Normal skin color. Normal skin turgor. Extremities: No lower extremity edema. No calf tenderness Neuro: Oriented X 3. No motor deficit. Course Course Course Narrative: RME: 33-year-old male presents to ED for chest pain since heavy lifting and caring goes from the for floor. Presently denies any pleurisy, leg swelling, calf pain, or coughing up blood. Positive for chest wall tenderness on palpation. EKG labs chest x-ray ordered. Medical Decision Making Medical Decision Making [facility] Narrative: Patient with heart score of 0 atypical chest pain cardiac enzymes EKG negative discharge patient home on ibuprofen Differential Diagnosis Differential Diagnoses: The differential diagnosis associated with the presentation includes Lab Data [facility] Lab Attestation statement: I reviewed the patient's lab results. 10/25/24 17:40 10/25/24 17:40 Labs: Lab Results 10/25/24 Range/Units 17:40 WBC 8.3 (4.8-10.8) X10*3/uL RBC 4.67 (4.60-5.80) X10*6/uL Hgb 15.1 (14.0-18.0) g/dl Hct 42.7 (42.0-52.0) % MCV 91.4 (80.0-98.0) fL MCH 32.3 (27.0-33.0) pg MCHC 35.4 (31.0-36.0) g/dl RDW 11.3 (11.0-16.0) % Plt Count 196 (160-400) X10*3/uL MPV 10.9 (9.4-12.4) fL Immature Gran % (Auto) 0.2 (0.0-0.4) % Neut % (Auto) 72.9 (45-73) % Lymph % (Auto) 18.6 L (20-40) % Treg[place] % (Auto) 6.9 (2-11) % Eos % (Auto) 0.7 (0-4) % Baso % (Auto) 0.7 (0-2) % Lymph # (Auto) 1.5 (1.2-4.9) X10*3/uL [place] # (Auto) 0.6 (0.1-1.2) X10*3/uL Eos # (Auto) 0.1 (0.0-0.4) X10*3/uL Baso # (Auto) 0.1 (0.0-0.2) X10*3/uL Abs Immat Gran (auto) 0.02 (0.00-0.03) X10*3/uL Absolute Neuts (auto) 6.0 (2.0-8.3) x10*3/uL Absolute Nucleated RBC 0.000 (0.0-0.012) X10*3/uL Nucleated RBC % (auto) 0.0 (0.0-0.2) /100WBC PT 12.0 (10.9-12.4) SEC INR 1.0 (0.9-1.1) APTT 36.9 H (26.0-36.8) SEC Sodium 142 (135-145) mmol/L Potassium 4.2 (3.3-5.1) mmol/L Chloride 107 (96-108) mmol/L Carbon Dioxide 26 (22-29) mmol/L Anion Gap 13 (12-20) BUN 10 (9-16) mg/dL Creatinine 0.83 (0.5-1.4) mg/dL Estim Creat Clear Calc 93.6 Estimated GFR > 60 Random Glucose 114 (60-115) mg/dL Calcium 9.7 (8.4-10.2) mg/dL Total Bilirubin 0.5 (0.0-1.0) mg/dL AST 31 (5-37) U/L ALT 21 (0-40) U/L Alkaline Phosphatase 86 (39-117) U/L Troponin I High Sens < 2.7 (<3.5-35.0) ng/L B-Natriuretic Peptide < 10 (<100) pg/mL Total Protein 7.8 (6.5-8.0) g/dL Albumin 4.6 (3.5-5.0) g/dL Influenza Type A (PCR) NEGATIVE (Negative) Influenza Type B (PCR) NEGATIVE (Negative) RSV RNA Qual (PCR) NEGATIVE (Negative) SARS-CoV-2 RNA (RT-PCR) NEGATIVE (Negative) Independent Interpretation I performed an independent interpretation of an: EKG Interpretation: Normal sinus rhythm heart rate 92 beats per minute normal interval normal acute ST-T no ischemia Discharge Plan Discharge Clinical Impression: Chest wall muscle strain Patient Disposition: Home, Self-Care Instructions: Chest Wall Pain (ED) Additional Instructions: Take ibuprofen for pain Prescriptions: New ibuprofen 600 mg tablet 600 mg PO Q6H PRN (Reason: fever or pain) Qty: 30 0RF No Action lamotrigine 200 mg tablet 200 mg PO BID Qty: 10 0RF lamotrigine 200 mg tablet 200 mg PO BID 3 Days Qty: 6 0RF cyclobenzaprine 10 mg tablet 10 mg PO TID PRN (Reason: muscle spasm) Qty: 14 0RF ibuprofen 600 mg tablet 600 mg PO Q8H PRN (Reason: pain) Qty: 14 0RF lidocaine 5 % adhesive patch,medicated 1 patch topical DAILY Qty: 15 0RF Rx Instructions: leave on most painful area for up to 12 hrs lamotrigine [Lamictal] 200 mg tablet 200 mg PO BID Qty: 2 0RF ibuprofen 600 mg tablet 600 mg PO Q6H PRN (Reason: pain) Qty: 30 0RF Interventions: ED Discharge Assessment Last Done: 10/25/24 21:37 Discharge Date/Time: 10/25/24 21:58 Print Language: Lithuanian
[2024-10-25 17:45] LABS: MANUAL DIFF FLAG NO
[2024-10-25 17:46] LABS: Basophils Absolute Auto 0.1 X10*3/uL (0.0-0.2); Basophils Percent Auto 0.7 % (0-2); Eosinophils Absolute Auto 0.1 X10*3/uL (0.0-0.4); Eosinophils Percent Auto 0.7 % (0-4); Hematocrit 42.7 % (42.0-52.0); Hemoglobin 15.1 g/dl (14.0-18.0); Imm Gran Abs Auto 0.02 X10*3/uL (0.00-0.03); Imm Gran Pct Auto 0.2 % (0.0-0.4); Lymphocytes Absolute Auto 1.5 X10*3/uL (1.2-4.9); Lymphocytes Percent Auto 18.6 % (20-40); Mean Corpuscular HGB Conc 35.4 g/dl (31.0-36.0); Mean Corpuscular Hemoglobin 32.3 pg (27.0-33.0); Mean Corpuscular Volume 91.4 fL (80.0-98.0); Mean Platelet Volume 10.9 fL (9.4-12.4); Monocytes Absolute Auto 0.6 X10*3/uL (0.1-1.2); Monocytes Percent Auto 6.9 % (2-11); Neutrophils Percent Auto 72.9 % (45-73); Platelet Count 196 X10*3/uL (160-400); Red Blood Count 4.67 X10*6/uL (4.60-5.80); Red Cell Distribution Width 11.3 % (11.0-16.0); White Blood Count 8.3 X10*3/uL (4.8-10.8)
[2024-10-25 17:57] LABS: Partial Thromboplastin Time 36.9 SEC (26.0-36.8)
[2024-10-25 17:59] LABS: Alanine Aminotransferase 21 U/L (0-40); Albumin Level 4.6 g/dL (3.5-5.0); Alkaline Phosphatase 86 U/L (39-117); Anion Gap 13 (12-20); Aspartate Amino Transferase 31 U/L (5-37); Bilirubin Total 0.5 mg/dL (0.0-1.0); Blood Urea Nitrogen 10 mg/dL (9-16); Calcium 9.7 mg/dL (8.4-10.2); Carbon Dioxide 26 mmol/L (22-29); Chloride 107 mmol/L (96-108); Creatinine Clr Calc Pharmacy 93.6; Estimated Glomerular Filt Rate > 60; Glucose Random 114 mg/dL (60-115); Potassium 4.2 mmol/L (3.3-5.1); Sodium 142 mmol/L (135-145); Total Protein 7.8 g/dL (6.5-8.0)
[2024-10-25 18:05] LABS: B Type Natriuretic Peptide < 10 pg/mL (<100)
[2024-10-25 18:10] LABS: Troponin-I High Sensitivity < 2.7 ng/L (<3.5-35.0)
[2024-10-25 18:26] LABS: Influenza A PCR NEGATIVE (Negative); Influenza B PCR NEGATIVE (Negative); Resp Syncy Virus RNA Qual PCR NEGATIVE (Negative); SARS COV2 PCR INHOUSE NEGATIVE (Negative)
[2024-10-25 21:22] VITALS: BP 119/68; PULSE 88; RESP 16; TEMP 36.8; O2SAT 96
[2024-10-25 21:37] VITALS: BP 119/68; PULSE 88; RESP 16; TEMP 36.8; O2SAT 96
== END 2024-10-25 21:58 | disposition home or self-care (01) ==
LOC: HO.ED 21:47
PROVIDERS: Physician Assistant; Emergency Provider Internal Medicine; PCP Internal Medicine Geriatric Medicine
DX: R07.89 Other chest pain (principal); F14.10 Cocaine abuse, uncomplicated; F17.210 Nicotine dependence, cigarettes, uncomplicated; Z03.818 Encounter for observation for suspected exposure to other biological agents ruled out; Z79.899 Other long term (current) drug therapy
CPT/HCPCS: 0241U; 71045; 80053; 83880; 84484; 85025; 85610; 85730; 93005; 99284

== ENCOUNTER → 2024-10-25 17:07 | Outpatient (BNV) | payer MEDICAID, SELFPAY | PROVIDERS: Emergency Provider Internal Medicine; PCP Internal Medicine Geriatric Medicine; Visit Provider Internal Medicine | DX: R07.9 Chest pain, unspecified (principal) | CPT/HCPCS: 93010 ==

== ENCOUNTER → 2024-10-25 17:20 | Outpatient (BNV) | payer MEDICAID, SELFPAY | PROVIDERS: Visit Provider Radiology Diagnostic Radiology | DX: R07.9 Chest pain, unspecified (principal) | CPT/HCPCS: 71045 ==

== ENCOUNTER 2025-01-27 12:59 | Emergency (ER) | payer MEDICAID, SELFPAY ==
--- NOTE | ~2025-01-27 | CT_ITS ---
EXAMINATION: CT SOFT TISSUE NECK WITHOUT CONTRAST CLINICAL INFORMATION: Difficulty swallowing post chicken bone ingestion. COMPARISON: None available. TECHNIQUE: Noncontrast helical imaging of the neck was performed in the axial plane with generation of coronal and sagittal reformatted images. This CT examination was performed using dose optimization techniques as appropriate, variously including the following: *Automated exposure control *Adjustment of mA and/or kV according to patient size (this includes techniques or standardized protocols for targeted exams where dose is matched to indication/reason for exam; i.e. extremities or head) *Use of iterative reconstruction technique FINDINGS: Lymph Nodes: -Normal. Carotid Sheath Structures: -Normal. Salivary Glands: -Normal. Tongue Base/Floor of Mouth: -Normal Mucosal Space: -Normal. -No radiopaque foreign body. Visceral Space: -Thyroid gland: Normal. -Normal. -Imaged esophagus normal. No radiopaque foreign body. Retropharangeal Space: - Normal. Parapharyngeal Fat Planes: -Normal. Chartered Financial Analyst Spaces: -Normal. Anterior Cervical Space: -Normal. Imaged Intracranial Contents: -No mass effect, edema, or abnormal enhancement. Cortical and dural venous sinuses are patent. The skull base is normal. Globes and Orbits: -Normal. Paranasal Sinuses/Mastoids/Tympanic Spaces: -Normally aerated bilaterally. Lung Apices and Superior Mediastinal Structures: -Imaged lung apices demonstrate mild apical scarring but are otherwise clear. -Superior mediastinal structures are normal. Bony Structures: -No suspicious bone lesions. No fractures. -Normal TM joints. CT/CT soft tissue neck wo IV con IMPRESSION: 1. Normal noncontrast CT of the neck. Electronically signed by: Erik Martinez MD 01/27/2025 02:06 PM EDT
--- NOTE | 2025-01-27 13:04 | ED_ITS ---
HPI - General Adult General Chief complaint: Anxiety Stated complaint: anxiety attack Time Seen by Provider: 01/27/25 13:04 Source: patient, family (patient's ) and EMS Mode of arrival: EMS Limitations: no limitations History of Present Illness ED Provider: Jessenia Cho PA-C HPI narrative: 34 year old male with PMHx anxiety, seizure disorder, presenting today c/o lightheadedness, blurred vision, anxiety, and feeling like he is going to pass out. Reports symptoms began a few hours ago when he was smoking marijuana. Reports daily marijuana use, obtained from the dispensary. Reports similar anxiety attacks in the past d/t ongoing stress regarding searching for employment, living in a fci with family. Denies syncope, LOC, dizziness upon standing, CP/palps, abd pain, numbness/tingling. Able to ambulate without assistance. Denies on any medications for anxiety. Also reports trouble difficulty swallowing x 2 days after a bone from chicken soup scratched his throat. Denies FB sensation, feeling of throat closing. Reports no known allergies. States he was feeling generally unwell 2 days ago but felt like he was getting better before this episode. Related Data Previous Rx's ?Medication ?Instructions ?Recorded lamotrigine 200 mg tablet 200 mg PO BID #10 tabs 11/24/21 lamotrigine 200 mg tablet 200 mg PO BID 3 days #6 tabs 02/24/22 lamotrigine 200 mg tablet 200 mg PO BID #2 tabs 03/18/23 (Lamictal) cyclobenzaprine 10 mg tablet 10 mg PO TID PRN muscle spasm #14 06/04/24 tabs ibuprofen 600 mg tablet 600 mg PO Q8H PRN pain #14 tabs 06/04/24 lidocaine 5 % topical patch 1 patch topical DAILY #15 ea 06/04/24 ibuprofen 600 mg tablet 600 mg PO Q6H PRN pain #30 tabs 07/16/24 ibuprofen 600 mg tablet 600 mg PO Q6H PRN fever or pain 10/25/24 #30 tabs Allergies Allergy/AdvReac Type Severity Reaction Status Date / Time No Known Allergies Allergy Verified 01/27/25 13:17 [No Known Allergies*] Review of Systems 2 Constitutional: Constitutional: Reports no additional constitutional complaints, Reports chills, Denies fever(s) and Denies night sweats Eyes: Eyes: Reports no additional eye complaints, Reports blurry vision (now resolved), Reports change in vision (now resolved), Denies eye discharge, Denies loss of vision and Denies eye pain ENT: Reports Normal hearing present, Reports dysphagia (subjective - able to tolerate PO), Denies dizziness, Denies hoarseness, Denies lip swelling, Denies epistaxis, Denies mouth pain, Reports sore throat, Denies throat swelling and Denies tongue swelling Cardiovascular: Cardiovascular: Reports no additional cardiovascular complaints, Denies chest pain, Denies syncope, Denies Loss of Consciousness and Denies dyspnea Respiratory: Respiratory: Reports no additional respiratory complaints and Denies dyspnea Gastrointestinal: Gastrointestinal: Reports no additional gastrointestinal complaints, Denies abdominal pain, Denies melena, Denies hematochezia, Denies change in bowel habits, Denies change in stool character, Reports dysphagia (subjective - able to tolerate PO), Denies diarrhea, Denies nausea and Denies vomiting Genitourinary: Genitourinary: Reports no additional male genitourinary complaints, Denies hematuria, Denies oliguria, Denies difficulty urinating, Denies dysuria, Denies urinary frequency, Denies urinary hesitancy, Denies urinary incontinence and Denies urinary urgency Musculoskeletal: Musculoskeletal: Reports no additional musculoskeletal complaints, Denies numbness and Denies tingling Neurologic: Reports Normal hearing present, Denies Abnormal speech present, Denies dizziness, Denies syncope, Denies loss of vision, Denies numbness, Denies seizure-like activity and Denies tingling Psychiatric: Psychiatric: Reports no additional psychiatric complaints Endocrine: Endocrine: Reports no additional endocrine complaints Hematologic/Lymphatic: Hematologic/Lymphatic: Reports no additional hematologic/lymphatic complaints Allergic/Immunologic: Allergic/Immunologic: Reports no additional allergic/immunologic complaints, Denies lip swelling, Denies throat swelling and Denies tongue swelling PMF Past Medical History Attestation statement: The following information was validated with the patient. Source: old records reviewed and nursing notes reviewed Social History Social History Patient Tobacco Use Status: Current everyday Tobacco user Smoked in Last 30 Days: Yes Use of substances other than those prescribed or required for medical reasons: Yes Substance Use Type: Marijuana Advance Directives: No Advance Directives Information Provided: Yes Do you have a plan to hurt others: No Plan Current occupational status: unemployed Current occupation: right hand dominant Physical Exam ED Vital Signs: Vital Signs - 24 hr 01/27/25 13:15 01/27/25 14:06 Temperature 98.6 F Pulse Rate 87 84 Respiratory Rate 16 16 Blood Pressure 137/75 114/69 Pulse Oximetry 98 99 Oxygen Delivery Method Room Air Room Air BMI result Body Mass Index 19.7 Const General: cooperative, no acute distress, alert and awake Nutritional Appearance: well nourished Orientation/consciousness: patient oriented x3 Limitations: no limitations HENMT Other: + No exudates, peritonsillar abscess. Uvula midline. + Dry mucus membranes Head: Yes normal to inspection and Yes atraumatic Ears: hearing grossly normal bilaterally and external ears normal General nose exam: Normal external nose present, no nasal discharge noted and no epistaxis Face and sinus: Yes normal facial exam, No abrasion, No laceration and Yes dry mucous membranes Mouth: Normal oral and palatal mucosa present, lip normal, tongue normal, no drooling, no muffled voice and no trismus Throat: Yes uvula midline and No peritonsillar mass Eyes General: appearance normal, both eyes and all related structures Periorbital: periorbital findings normal Eyelids: Yes eyelids normal Conjunctivae: conjunctivae normal Pupils: Equal, round and reactive pupils present EOM: EOMs intact bilaterally Neck Neck: Yes normal visual inspection, Yes full ROM and Yes no lymphadenopathy Chest Chest palpation & inspection: normal inspection of the chest Resp Effort & Inspection: normal respiratory effort and able to speak in complete sentences GI Inspection: Yes normal to inspection Neuro General: patient oriented x3, moves all extremities and CN's II-XI intact bilaterally Cranial nerves: Yes Equal, round and reactive pupils present and Yes Normal hearing present Cognition (Neuro): normal cognition Speech: No Abnormal speech present Extrem General: Yes normal to inspection, Yes full ROM and Yes capillary refill normal Psych Appearance: grossly normal Mental Status: mental status grossly normal Affect: normal affect Attitude: cooperative Thought process: Normal thought process present Thought content: Normal thought content present Insight: Good insight present (Psych) NIH Stroke Scale Internal: Initial- Upon Arrival Level of Consciousness: Alert Level of Consciousness Questions: Answers both questions correctly Level of Consciousness Commands: Performs both tasks correctly Best Gaze: Normal Visual: No visual loss Facial Palsy: Normal Motor Arm (Right): No drift Motor Arm (Left): No drift Motor Leg (Right): No drift Motor Leg (Left): No drift Limb Ataxia: Absent Sensory: Normal Best Language: No aphasia Dysarthia: Normal Extinction and Inattention: No abnormality Score: 0 Medications Administered Discontinued Medications Generic Name Dose Route Start Last Admin Trade Name Sujey PRN Reason Stop Dose Admin Al Hydroxide/Mg Hydroxide 15 ml 01/27/25 14:46 01/27/25 15:08 Magnesium Hydrox/Alum Hydrox 30 Ml Oral.Susp PO 01/27/25 14:47 15 ml ONCE ONE Administration Sodium Chloride 1,000 mls @ 999 mls/hr 01/27/25 13:30 01/27/25 15:12 Ns IV 01/27/25 14:30 Infused .Q1H1M RICHA Infusion Lorazepam 1 mg 01/27/25 13:24 01/27/25 13:51 Lorazepam 1 Mg Tablet PO 01/27/25 13:25 1 mg ONCE ONE Administration Medical Decision Making Medical Decision Making MDM Narrative: Patient is a 34 year old assigned male at with a history of anxiety presenting to the emergency department today with a sore throat and episode of lightheadedness after smoking marijuana. Patient's physical exam was unremarkable. Patient's blood work was unremarkable. Patient's CT soft tissue neck showed no acute process. Patient's influenza test was positive. I explained my physical exam findings as well as all test results to the patient. I answered all questions asked by the patient. Patient received IV fluids which, upon re- evaluation, he stated it helped his symptoms significantly. I stressed the importance of the patient taking his medication as directed (either prescribed or as the over the counter packaging recommends). I stressed the importance of the patient following up with his primary care provider. I stressed the importance of the patient returning to the emergency department immediately if his symptoms were to worsen or if he were to develop any dizziness, shortness of breath, difficulty breathing, chest pain, blurry vision, loss of vision, nausea, vomiting, abdominal pain, fever, chills, back pain, or any other complaints. Patient verbalized agreement and understanding with this treatment plan and discharge. Differential Diagnosis Differential Diagnoses: The differential diagnosis associated with the presentation includes Sore throat Esophagitis Influenza COVID-19 Admission/Observation Consideration of admission/observation: Escalation of care including admission/observation considered Patient would have been admitted to the hospital had his work up had any findings where hospital admission was appropriate and his clinical presentation warranted hospital admission. Lab Data [facility] Lab Attestation statement: I reviewed the patient's lab results. My interpretation of these results are in the MDM Rationale portion of this note. 01/27/25 13:58 01/27/25 13:58 Labs: Lab Results 01/27/25 01/27/25 Range/Units 13:58 15:35 WBC 5.4 (4.8-10.8) X10*3/uL RBC 4.52 L (4.60-5.80) X10*6/uL Hgb 14.8 (14.0-18.0) g/dl Hct 41.4 L (42.0-52.0) % MCV 91.6 (80.0-98.0) fL MCH 32.7 (27.0-33.0) pg MCHC 35.7 (31.0-36.0) g/dl RDW 11.2 (11.0-16.0) % Plt Count 149 L (160-400) X10*3/uL MPV 10.9 (9.4-12.4) fL Immature Gran % (Auto) 0.4 (0.0-0.4) % Neut % (Auto) 73.9 H (45-73) % Lymph % (Auto) 20.1 (20-40) % [place] % (Auto) 5.0 (2-11) % Eos % (Auto) 0.2 (0-4) % Baso % (Auto) 0.4 (0-2) % Lymph # (Auto) 1.1 L (1.2-4.9) X10*3/uL [place] # (Auto) 0.3 (0.1-1.2) X10*3/uL Eos # (Auto) 0.0 (0.0-0.4) X10*3/uL Baso # (Auto) 0.0 (0.0-0.2) X10*3/uL Abs Immat Gran (auto) 0.02 (0.00-0.03) X10*3/uL Absolute Neuts (auto) 4.0 (2.0-8.3) x10*3/uL Absolute Nucleated RBC 0.000 (0.0-0.012) X10*3/uL Nucleated RBC % (auto) 0.0 (0.0-0.2) /100WBC Smear Tech's Comments VERIFIED Sodium 143 (135-145) mmol/L Potassium 3.9 (3.3-5.1) mmol/L Chloride 110 H (96-108) mmol/L Carbon Dioxide 30 H (22-29) mmol/L Anion Gap 7 L (12-20) BUN 7 L (9-16) mg/dL Creatinine 0.73 (0.5-1.4) mg/dL Estim Creat Clear Calc 104.2 Estimated GFR > 60 Random Glucose 81 (60-115) mg/dL Calcium 9.5 (8.4-10.2) mg/dL Magnesium 1.9 (1.6-2.6) mg/dL Total Bilirubin 0.3 (0.0-1.0) mg/dL AST 34 (5-37) U/L ALT 21 (0-40) U/L Alkaline Phosphatase 90 (39-117) U/L Total Protein 7.6 (6.5-8.0) g/dL Albumin 4.4 (3.5-5.0) g/dL Influenza Type A (PCR) NEGATIVE (Negative) Influenza Type B (PCR) POSITIVE A (Negative) RSV RNA Qual (PCR) NEGATIVE (Negative) SARS-CoV-2 RNA (RT-PCR) NEGATIVE (Negative) S. pyogenes GrpA CARRIE Negative (Negative) Independent Interpretation I performed an independent interpretation of an: CT Scan Interpretation: My interpretation is in agreement with the radiologist's impression of this imaging study. L Report Number: [id number]: Total DLP = 383.00 mGy-cm EXAMINATION: CT SOFT TISSUE NECK WITHOUT CONTRAST CLINICAL INFORMATION: Difficulty swallowing post chicken bone ingestion. COMPARISON: None available. TECHNIQUE: Noncontrast helical imaging of the neck was performed in the axial plane with generation of coronal and sagittal reformatted images. This CT examination was performed using dose optimization techniques as appropriate, variously including the following: *Automated exposure control *Adjustment of mA and/or kV according to patient size (this includes techniques or standardized protocols for targeted exams where dose is matched to indication/reason for exam; i.e. extremities or head) *Use of iterative reconstruction technique FINDINGS: Lymph Nodes: -Normal. Carotid Sheath Structures: -Normal. Salivary Glands: -Normal. Tongue Base/Floor of Mouth: -Normal Mucosal Space: -Normal. -No radiopaque foreign body. Visceral Space: -Thyroid gland: Normal. -Normal. -Imaged esophagus normal. No radiopaque foreign body. Retropharangeal Space: - Normal. Parapharyngeal Fat Planes: -Normal. Food Products Tester Spaces: -Normal. Anterior Cervical Space: -Normal. Imaged Intracranial Contents: -No mass effect, edema, or abnormal enhancement. Cortical and dural venous sinuses are patent. The skull base is normal. Globes and Orbits: -Normal. Paranasal Sinuses/Mastoids/Tympanic Spaces: -Normally aerated bilaterally. Lung Apices and Superior Mediastinal Structures: -Imaged lung apices demonstrate mild apical scarring but are otherwise clear. -Superior mediastinal structures are normal. Bony Structures: -No suspicious bone lesions. No fractures. -Normal TM joints. CT/CT soft tissue neck wo IV con IMPRESSION: 1. Normal noncontrast CT of the neck. Electronically signed by: Erik Martinez MD 01/27/2025 02:06 PM EDT RP Dictated By: Erik Martinez MD Signed By: Electronically signed by Erik Martinez MD 01/27/25 1406 Radiology Impression Discussion of test interpretation with radiology: I have reviewed the radiologist's reading. Independent Historian Clinical information obtained from an independent historian. History obtained from or confirmed by: Spouse (patient's provided additional history and confirmed the history provided by the patient. ) and EMS (EMS provided additional history and confirmed the history provided by the patient.) Critical Care Time Critical Care Time Critical Care Time: Yes Total Critical Care Time: 32 Attestation: I spent 32 minutes of Critical Care Time with this patient. This does not include time spent on separately reported billable procedures. Discharge Plan Discharge Clinical Impression: Influenza, Esophagitis Patient Disposition: Home, Self-Care Instructions: Influenza (DC), Esophagitis (ED) Additional Instructions: Please be sure to stay hydrated with electrolyte containing fluids like sugar free Gatorade or Powerade. Follow up with your primary care provider. Return to the emergency department immediately if your symptoms worsen or if you develop any numbness, tingling, dizziness, shortness of breath, difficulty breathing, chest pain, blurry vision, loss of vision, nausea, vomiting, abdominal pain, fever, chills, back pain, or any other complaints. Please see the information below about our Patient Portal. If you are not yet enrolled in the [facility] Patient Portal, you will receive an enrollment email invitation following your visit to any [facility] setting. You may also self-enroll in the Patient Portal by visiting our website: [email or web address] The following information is required to access the Patient Portal: - Your [facility] Record Number - Your personal home email address (must match what is in your electronic medical record, Registration staff can assist with this) - Name - Date of Capabilities of the Patient Portal: - Message some providers - View upcoming appointments - Access your health summary, medical history, and visit history - View current conditions and allergies - View procedure and lab results - View your medications, including guidelines, side effects, and precautions - Complete pre-appointment questionnaires requested by your provider - Ready summary reports of your office visits and procedures To access the Patient Portal Mobile Lisa, follow these directions: - Search [employer] in the Lisa Store or [email or web address] Store - Download the Lisa - Search for [facility] - Enter your login/password Prescriptions: No Action lamotrigine 200 mg tablet 200 mg PO BID Qty: 10 0RF lamotrigine 200 mg tablet 200 mg PO BID 3 Days Qty: 6 0RF cyclobenzaprine 10 mg tablet 10 mg PO TID PRN (Reason: muscle spasm) Qty: 14 0RF ibuprofen 600 mg tablet 600 mg PO Q8H PRN (Reason: pain) Qty: 14 0RF lidocaine 5 % adhesive patch,medicated 1 patch topical DAILY Qty: 15 0RF Rx Instructions: leave on most painful area for up to 12 hrs lamotrigine [Lamictal] 200 mg tablet 200 mg PO BID Qty: 2 0RF ibuprofen 600 mg tablet 600 mg PO Q6H PRN (Reason: pain) Qty: 30 0RF ibuprofen 600 mg tablet 600 mg PO Q6H PRN (Reason: fever or pain) Qty: 30 0RF Referrals: [facility] [Provider Group] (Call to establish and follow up with a primary care provider. If you already have a primary care provider, please follow up with them.) [facility] [Provider Group] (Call to establish and follow up with a primary care provider. If you already have a primary care provider, please follow up with them.) [facility] [Provider Group] (Call to establish and follow up with a primary care provider. If you already have a primary care provider, please follow up with them.) [facility] [Provider Group] (Call to establish and follow up with a primary care provider. If you already have a primary care provider, please follow up with them.) Stand Alone Forms: Work/School Release Print Language: Uzbek
[2025-01-27 13:05] VITALS: BP 118/74; PULSE 86; O2SAT 98
[2025-01-27 13:15] VITALS: BP 137/75; PULSE 87; RESP 16; TEMP 37; O2SAT 98; BMI 19.7
[2025-01-27] MEDS: LORazepam 1 MG TABLET PO (13:51)
[2025-01-27] MEDS: 0.9 % Sodium Chloride 1,000 ML 999 ML IV (13:58)
[2025-01-27 14:06] VITALS: BP 114/69; PULSE 84; RESP 16; O2SAT 99
[2025-01-27 14:10] LABS: Basophils Percent Auto 0.4 % (0-2); Eosinophils Percent Auto 0.2 % (0-4); Hematocrit 41.4 % (42.0-52.0); Hemoglobin 14.8 g/dl (14.0-18.0); Imm Gran Abs Auto 0.02 X10*3/uL (0.00-0.03); Imm Gran Pct Auto 0.4 % (0.0-0.4); Lymphocytes Absolute Auto 1.1 X10*3/uL (1.2-4.9); Lymphocytes Percent Auto 20.1 % (20-40); MANUAL DIFF FLAG SCAN; Mean Corpuscular HGB Conc 35.7 g/dl (31.0-36.0); Mean Corpuscular Hemoglobin 32.7 pg (27.0-33.0); Mean Corpuscular Volume 91.6 fL (80.0-98.0); Mean Platelet Volume 10.9 fL (9.4-12.4); Monocytes Absolute Auto 0.3 X10*3/uL (0.1-1.2); Neutrophils Percent Auto 73.9 % (45-73); Platelet Count 149 X10*3/uL (160-400); Red Blood Count 4.52 X10*6/uL (4.60-5.80); Red Cell Distribution Width 11.2 % (11.0-16.0); SCAN SMEAR FLAG 1; White Blood Count 5.4 X10*3/uL (4.8-10.8)
[2025-01-27 14:22] LABS: Alanine Aminotransferase 21 U/L (0-40); Albumin Level 4.4 g/dL (3.5-5.0); Alkaline Phosphatase 90 U/L (39-117); Anion Gap 7 (12-20); Aspartate Amino Transferase 34 U/L (5-37); Bilirubin Total 0.3 mg/dL (0.0-1.0); Blood Urea Nitrogen 7 mg/dL (9-16); Calcium 9.5 mg/dL (8.4-10.2); Carbon Dioxide 30 mmol/L (22-29); Chloride 110 mmol/L (96-108); Creatinine Clr Calc Pharmacy 104.2; Estimated Glomerular Filt Rate > 60; Glucose Random 81 mg/dL (60-115); Magnesium 1.9 mg/dL (1.6-2.6); Potassium 3.9 mmol/L (3.3-5.1); Sodium 143 mmol/L (135-145); Total Protein 7.6 g/dL (6.5-8.0)
[2025-01-27] MEDS: Magnesium Hydrox/Alum Hydrox 30 ML ORAL.SUSP 15 ML PO (15:08)
[2025-01-27 15:17] LABS: SLIDE REVIEW VERIFIED
[2025-01-27 15:49] LABS: IDNOW Serial# 55D5AD1C; Strep A Nucleic Acid Negative (Negative)
[2025-01-27 16:21] LABS: Influenza A PCR NEGATIVE (Negative); Influenza B PCR POSITIVE (Negative); Resp Syncy Virus RNA Qual PCR NEGATIVE (Negative); SARS COV2 PCR INHOUSE NEGATIVE (Negative)
[2025-01-27 16:39] VITALS: BP 114/69; PULSE 84; RESP 16; TEMP -17.7; TEMP 0; O2SAT 99
== END 2025-01-27 16:46 | disposition home or self-care (01) ==
PROVIDERS: Physician Assistant Medical; Emergency Provider Emergency Medicine
DX: J10.1 Influenza due to other identified influenza virus with other respiratory manifestations (principal); K20.90 Esophagitis, unspecified without bleeding; R11.2 Nausea with vomiting, unspecified; F41.1 Generalized anxiety disorder; R13.10 Dysphagia, unspecified; F43.0 Acute stress reaction; Z03.818 Encounter for observation for suspected exposure to other biological agents ruled out
CPT/HCPCS: 0241U; 36415; 70490; 80053; 83735; 85025; 87651; 96360; 99284

== ENCOUNTER → 2025-01-27 13:24 | Outpatient (BNV) | payer MEDICAID, SELFPAY | PROVIDERS: Emergency Provider Emergency Medicine; Visit Provider Radiology Diagnostic Radiology | DX: R13.10 Dysphagia, unspecified (principal) | CPT/HCPCS: 70490 ==

== ENCOUNTER 2025-08-18 16:51 | Emergency (ER) | payer MEDICAID, SELFPAY ==
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
[2025-08-18 16:56] VITALS: BP 138/81; PULSE 92; RESP 18; TEMP 37.1; O2SAT 97; BMI 20.2
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
[2025-08-18 18:32] VITALS: BP 138/81; PULSE 92; RESP 18; TEMP 37.1; O2SAT 97
== END 2025-08-18 18:32 | disposition home or self-care (01) ==
PROVIDERS: Emergency Provider Student in an Organized Health Care Education/Training Program; PCP Internal Medicine Geriatric Medicine
DX: S16.1XXA Strain of muscle, fascia and tendon at neck level, initial encounter (principal); V43.52XA Car driver injured in collision with other type car in traffic accident, initial encounter; Y93.9 Activity, unspecified; Y92.9 Unspecified place or not applicable; Y99.9 Unspecified external cause status; R07.89 Other chest pain
CPT/HCPCS: 71101; 99282; 99283

== ENCOUNTER → 2025-08-18 17:02 | Outpatient (BNV) | payer MEDICAID, SELFPAY | PROVIDERS: Emergency Provider Student in an Organized Health Care Education/Training Program; PCP Internal Medicine Geriatric Medicine; Visit Provider Student in an Organized Health Care Education/Training Program | DX: R07.9 Chest pain, unspecified (principal); V89.2XXA Person injured in unspecified motor-vehicle accident, traffic, initial encounter | CPT/HCPCS: 71101 ==